=== PATIENT | female | born 1965 | race Caucasian/White ===

== ENCOUNTER 2017-01-17 05:11 | Observation (INO) | payer OTHER ==
[2017-01-17] MEDS ORDERED: ONDANSETRON 4 MG/2 ML VIAL IVP STA ×2 (05:26→08:07)
[2017-01-17] MEDS ORDERED: SODIUM CHLORIDE 0.9% 1,000 ML IV STA ×2 (05:26→08:07)
[2017-01-17] MEDS ORDERED: HYDROmorphone 1 MG/ML 1 ML SYRINGE IVP STA (05:26)
[2017-01-17] MEDS ORDERED: RX INFO: IV CONTRAST WAS GIVEN 1 EACH MISC MISCELLANE PRN (05:26)
--- NOTE | 2017-01-17 05:29 | ED ---
General Adult HPI - General Source: patient, RN notes reviewed Mode of arrival: ambulatory Limitations: no limitations <Federico Maravilla - Last Filed: 01/17/17 05:27> <Kannan Ramirez - Last Filed: 01/17/17 08:09> - General Chief complaint: Abdominal Pain Stated complaint: Abd pain Time Seen by Provider: 01/17/17 05:23 - History of Present Illness Initial comments: Patient is a pleasant 51-year-old female presenting to the emergency department complaining of abdominal discomfort. Onset was 2 days ago. Symptoms have been somewhat waxing and waning. Discomfort is mostly diffuse however may be more so in the suprapubic region. No back pain. Patient has nausea without vomiting. Patient did have some urinary frequency last week however that has improved. No dysuria. No hematuria. No constipation or diarrhea. No fevers. (Federico Maravilla) - Related Data Home Medications Medication Instructions Recorded Confirmed Artificial Tears-Hypromellose 1 drops BOTH EYES BID PRN 04/21/15 08/07/15 [Artificial Tear Drops] Dextroamphetamine/Amphetamine 20 mg PO BID 04/21/15 08/07/15 [Adderall] Docusate [Colace] 100 mg PO DAILY PRN 04/21/15 08/07/15 LORazepam [Ativan] 0.5 mg PO BID PRN 04/21/15 08/07/15 Ranitidine HCl 75 mg PO BID PRN 04/21/15 08/07/15 Previous Rx's Medication Instructions Recorded HYDROcodone/APAP 10-325MG [[place] 1 tab PO Q6H PRN #15 tab 07/24/15 10-325] Ibuprofen [Motrin] 600 mg PO Q8HR PRN #20 tab 07/24/15 Ondansetron Odt [Zofran Odt] 4 mg PO Q8HR PRN #10 tab 07/24/15 Tamsulosin [Flomax] 0.4 mg PO DAILY #7 cap 07/24/15 Erythromycin Ophth Oint [Romycin 1 applic RIGHT EYE QID #3.5 gm 08/07/15 Ophth Oint] Allergies Allergy/AdvReac Type Severity Reaction Status Date / Time acetaminophen [From Lortab] AdvReac Unknown Verified 01/17/17 05:16 hydrocodone bitartrate AdvReac Unknown Verified 01/17/17 05:16 [From Lortab] Review of Systems ROS Other: All systems not noted in ROS Statement are negative. Constitutional: Denies: fever, chills Eyes: Denies: eye pain ENT: Denies: ear pain Respiratory: Denies: cough Cardiovascular: Denies: chest pain Endocrine: Denies: fatigue Gastrointestinal: Reports: abdominal pain, nausea. Denies: vomiting, diarrhea, constipation Genitourinary: Reports: frequency. Denies: urgency, dysuria, hematuria Musculoskeletal: Denies: back pain Skin: Denies: rash Neurological: Denies: weakness <Federico Maravilla - Last Filed: 01/17/17 05:27> ROS Other: All systems not noted in ROS Statement are negative. <Kannan Ramirez - Last Filed: 01/17/17 08:09> ROS Statement: Those systems with pertinent positive or pertinent negative responses have been documented in the HPI. Past Medical History Past Medical History: GERD/Reflux, Renal Disease Additional Past Medical History / Comment(s): 04/21/15 Pt presented to [facility] ER with suprapubic abdominal pain radiating to her back. Pt has hx of kidney stone once before. She stated it feels like that but then it did not radiate. Current pain began 3 weeks ago. Obstetric history: She had her first vaginal delivery when she was 16, then she had a voluntary termination, then she had any other vaginal delivery. History of Any Multi-Drug Resistant Organisms: None Reported Past Surgical History: Tubal Ligation Additional Past Surgical History / Comment(s): novasure uterine ablation, TL using clamps-at age 20 yrs over in [place]. Past Anesthesia/Blood Transfusion Reactions: No Reported Reaction Additional Past Anesthesia/Blood Transfusion Reaction / Comment(s): Pt states she has never recieve blood. Past Psychological History: ADD/ADHD Smoking Status: Current every day smoker Past Alcohol Use History: Rare Past Drug Use History: None Reported - Past Family History Father Family Medical History: Diabetes Mellitus Additional Family Medical History / Comment(s): Father is 75 yrs old. Mother History Unknown: Yes Additional Family Medical History / Comment(s): Pt states mother is on alot of medications but she does not know what health issues she has. Her mother is 75 yrs. old. <Federico Maravilla - Last Filed: 01/17/17 05:27> General Exam Limitations: no limitations General appearance: alert, in no apparent distress Head exam: Present: atraumatic Eye exam: Present: normal appearance, PERRL ENT exam: Present: normal oropharynx Neck exam: Present: normal inspection Respiratory exam: Present: normal lung sounds bilaterally Cardiovascular Exam: Present: regular rate, normal rhythm Expanded Peripheral pulses: 2+: Posterior Tibialis (R), Posterior Tibialis (L) GI/Abdominal exam: Present: soft, tenderness (Mild suprapubic tenderness), normal bowel sounds. Absent: distended, guarding, rebound, rigid, pulsatile mass Extremities exam: Present: normal inspection. Absent: pedal edema, calf tenderness Back exam: Present: normal inspection. Absent: tenderness Neurological exam: Present: alert Psychiatric exam: Present: normal affect, normal mood Skin exam: Present: normal color <Federico Maravilla Last Filed: 01/17/17 05:27> General appearance: alert, in no apparent distress Head exam: Present: atraumatic, normocephalic, normal inspection Eye exam: Present: normal appearance, PERRL, EOMI. Absent: scleral icterus, conjunctival injection, periorbital swelling ENT exam: Present: normal exam, mucous membranes moist Neck exam: Present: normal inspection. Absent: tenderness, meningismus, lymphadenopathy Respiratory exam: Present: normal lung sounds bilaterally. Absent: respiratory distress, wheezes, rales, rhonchi, stridor Cardiovascular Exam: Present: regular rate, normal rhythm, normal heart sounds. Absent: systolic murmur, diastolic murmur, rubs, gallop, clicks GI/Abdominal exam: Present: soft, normal bowel sounds. Absent: distended, tenderness, guarding, rebound, rigid Extremities exam: Present: normal inspection, full ROM, normal capillary refill. Absent: tenderness, pedal edema, joint swelling, calf tenderness Back exam: Present: normal inspection Neurological exam: Present: alert, oriented X3, CN II-XII intact Psychiatric exam: Present: normal affect, normal mood Skin exam: Present: warm, dry, intact, normal color. Absent: rash <Kannan Ramirez - Last Filed: 01/17/17 08:09> Course <Federico Maravilla Last Filed: 01/17/17 05:27> <Kannan Ramirez - Last Filed: 01/17/17 08:09> Vital Signs 01/17/17 01/17/17 05:14 07:17 Temperature 97.8 F 97.1 F L Pulse Rate 101 H 90 Respiratory 18 17 Rate Blood Pressure 134/85 157/74 O2 Sat by Pulse 96 100 Oximetry - Reevaluation(s) Reevaluation #1: 01/17/17 08:09 Patient does feel better but feels symptoms will come back as soon as she leaves (Kannan Ramirez) Medical Decision Making <Federico Maravilla - Last Filed: 01/17/17 05:27> - Lab Data Result diagrams: 01/17/17 05:44 01/17/17 05:44 - Radiology Data Radiology results: report reviewed (Computed tomography scan and pelvis positive for ileus), image reviewed <Kannan Ramirez - Last Filed: 01/17/17 08:09> - Medical Decision Making 51 female any abdominal pain, positive ileus on CAT scan, patient I will tolerate oral fluids, no bowel movement since yesterday. Patient be admitted for conservative therapy, nothing by mouth and symptom control (Kannan Ramirez) - Lab Data Lab Results 01/17/17 01/17/17 01/17/17 Range/Units 05:44 05:44 05:44 WBC 11.0 H (3.8-10.6) k/uL RBC 4.78 (3.80-5.40) m/uL Hgb 15.0 (11.4-16.0) gm/dL Hct 44.6 (34.0-46.0) % MCV 93.5 (80.0-100.0) fL MCH 31.5 (25.0-35.0) pg MCHC 33.7 (31.0-37.0) g/dL RDW 13.8 (11.5-15.5) % Plt Count 402 (150-450) k/uL Neutrophils % 77 % Lymphocytes % 13 % Monocytes % 7 % Eosinophils % 1 % Basophils % 1 % Neutrophils # 8.5 H (1.3-7.7) k/uL Lymphocytes # 1.4 (1.0-4.8) k/uL Monocytes # 0.7 (0-1.0) k/uL Eosinophils # 0.1 (0-0.7) k/uL Basophils # 0.1 (0-0.2) k/uL Sodium 138 (137-145) mmol/L Potassium 3.9 (3.5-5.1) mmol/L Chloride 103 (98-107) mmol/L Carbon Dioxide 26 (22-30) mmol/L Anion Gap 9 mmol/L BUN 14 (7-17) mg/dL Creatinine 0.70 (0.52-1.04) mg/dL Est GFR (MDRD) Af Amer >60 (>60 ml/min/1.73 sqM) Est GFR (MDRD) Non-Af >60 (>60 ml/min/1.73 sqM) Glucose 89 (74-99) mg/dL Calcium 9.5 (8.4-10.2) mg/dL Total Bilirubin 0.5 (0.2-1.3) mg/dL AST 15 (14-36) U/L ALT 29 (9-52) U/L Alkaline Phosphatase 51 (38-126) U/L Total Protein 6.6 (6.3-8.2) g/dL Albumin 4.2 (3.5-5.0) g/dL Amylase 40 (30-110) U/L Lipase 64 (23-300) U/L Urine Color Yellow Urine Appearance Clear (Clear) Urine pH 8.0 (5.0-8.0) Ur Specific [place] 1.010 (1.001-1.035) Urine Protein Negative (Negative) Urine Glucose (UA) Negative (Negative) Urine Ketones Negative (Negative) Urine Blood Negative (Negative) Urine Nitrite Negative (Negative) Urine Bilirubin Negative (Negative) Urine Urobilinogen <2.0 (<2.0) mg/dL Ur Leukocyte Esterase Negative (Negative) Disposition <Federico Maravilla - Last Filed: 01/17/17 05:27> <Kannan Ramirez - Last Filed: 01/17/17 08:09> Clinical Impression: Abdominal pain, Ileus Disposition: ADMITTED IP TO THIS [facility] Condition: Fair Referrals: Nate Buenrostro MD [Primary Care Provider] - 1-2 days
[2017-01-17 05:59] LABS: Appearance,Urine Clear (Clear); Basophils # (A) 0.1 k/uL (0-0.2); Basophils % (A) 1 %; Bilirubin,Urine Negative (Negative); CH 31.9; CHCM 34.3; Eosinophils # (A) 0.1 k/uL (0-0.7); Eosinophils % (A) 1 %; Glucose,Urine (UA) Negative (Negative); HCT 44.6 % (34.0-46.0); HDW 2.16; Ketones,Urine Negative (Negative); Leukocyte Esterase,Urine Negative (Negative); Luc # (Auto) 0.25; Luc % (Auto) 2; Lymphocytes # (A) 1.4 k/uL (1.0-4.8); Lymphocytes % (A) 13 %; MCH 31.5 pg (25.0-35.0); MCHC 33.7 g/dL (31.0-37.0); MCV 93.5 fL (80.0-100.0); Mean Platelet Volume 6.7; Monocytes # (A) 0.7 k/uL (0-1.0); Monocytes % (A) 7 %; Neutrophils # (A) 8.5 k/uL (1.3-7.7); Neutrophils % (A) 77 %; Nitrite,Urine Negative (Negative); Protein,Urine Negative (Negative); RBC 4.78 m/uL (3.80-5.40); RDW 13.8 % (11.5-15.5); UA Billing (MACRO vs. MICRO) CHEM; Urobilinogen,Urine <2.0 mg/dL (<2.0); WBC (Perox) 10.46
[2017-01-17 06:13] LABS: ALT 29 U/L (9-52); AST 15 U/L (14-36); Alkaline Phosphatase 51 U/L (38-126); Amylase 40 U/L (30-110); Anion Gap 9 mmol/L; Blood Urea Nitrogen 14 mg/dL (7-17); Calcium 9.5 mg/dL (8.4-10.2); Carbon Dioxide 26 mmol/L (22-30); Chloride 103 mmol/L (98-107); Glucose 89 mg/dL (74-99); Non-African American GFR(MDRD) >60 (>60 ml/min/1.73 sqM); Potassium 3.9 mmol/L (3.5-5.1); Sodium 138 mmol/L (137-145); Total Bilirubin 0.5 mg/dL (0.2-1.3); Total Protein 6.6 g/dL (6.3-8.2)
--- NOTE | 2017-01-17 07:33 | CT ---
EXAMINATION TYPE: CT abdomen pelvis w con DATE OF EXAM: 01/17/2017 REFERENCE: Previous study dated 07/24/2015. HISTORY: abdominal pain HISTORY: pelvic pain REFERENCE: NONE CT DLP: 743.7 mGy Automated exposure control for dose reduction was used. TECHNIQUE: Helical acquisition through the abdomen and pelvis was obtained following the oral ingesti on of without Oral Contrast and following intravenous administration of 100 mL of Omnipaque 300. The data was reformatted in axial, coronal and sagittal projections. FINDINGS: Visualized portions of the lungs are clear. There is no pleural or pericardial fluid. The heart is not enlarged. Within the abdomen, there is a 4.6 mm low attenuating lesion in the medial segment of the left lobe o f the liver, too small accurately characterize. The liver, spleen and gallbladder are otherwise melchor l. Both adrenal glands are normal. Both kidneys demonstrate function and are morphologically normal. Pancreas is unremarkable. There is no significant retroperitoneal, iliac or inguinal adenopathy. The bladder is unremarkable. Uterus is unremarkable. The endometrial stripe measures 1.3 cm. There has been a previous tubal ligat ion. There is a 1.5 cm right ovarian cyst and a 1.7 cm left ovarian cyst. There are scattered diverticula within the sigmoid colon and elsewhere throughout the left side of th e colon. There is no radiographic evidence of diverticulitis. There are mildly dilated fluid-filled loops of small bowel in the lower abdomen. The more proximal sm all bowel appears normal. There is no free fluid and no free air. No bony destructive lesion is seen. IMPRESSION: 1. MILDLY DILATED AND FLUID-FILLED LOOPS OF DISTAL SMALL BOWEL. LOCALIZED ILEUS VERSUS EARLY PARTIAL OBSTRUCTION WOULD NEED TO BE CONSIDERED. 2. 4.6 MM LESION IN THE LEFT LOBE OF LIVER, TOO SMALL TO CHARACTERIZE ACCURATELY. 3. BILATERAL OVARIAN CYSTS. 4. MINIMAL, NONCOMPLICATED DIVERTICULOSIS OF THE LEFT SIDE OF THE COLON.
[2017-01-17] MEDS ORDERED: SODIUM CHLORIDE 0.9% 500 ML IV STA (08:07)
[2017-01-17] MEDS ORDERED: MORPHINE SULFATE 4 MG/ML SYRINGE IVP STA (08:07)
[2017-01-17] MEDS ORDERED: KETOROLAC 30 MG/ML 1 ML VIAL IVP STA (08:07)
[2017-01-17] MEDS ORDERED: DICYCLOMINE 10 MG/ML 2 ML AMP IM STA (08:07)
[2017-01-17] MEDS ORDERED: FAMOTIDINE 20 MG/2 ML VIAL IV STA (08:07)
[2017-01-17] MEDS ORDERED: ENOXAPARIN 40 MG/0.4 ML SYRINGE SQ SCH (09:00)
[2017-01-17 09:21] VITALS: RESP 16
[2017-01-17] MEDS ORDERED: ONDANSETRON 4 MG/2 ML VIAL IVP PRN (09:47)
[2017-01-17 09:57] VITALS: BMI 31.8
[2017-01-17] MEDS ORDERED: ASPIRIN-ACET-CAFF 250-250-65MG 1 EACH TAB PO PRN (10:40)
[2017-01-17] MEDS ORDERED: LORazepam 0.5 MG TAB PO PRN (10:40)
[2017-01-17] MEDS ORDERED: ESOMEPRAZOLE 20 MG in SODIUM CHLORIDE 0.9% 50 ML IVPB SCH (11:00)
[2017-01-17] MEDS: MORPHINE SULFATE 4 MG/ML SYRINGE IVP PRN ×2 (11:57→15:49)
[2017-01-17 15:02] VITALS: BP 129/74; PULSE 91; TEMP 99.2
[2017-01-17] MEDS ORDERED: ACETAMINOPHEN TAB 325 MG TAB PO PRN (15:32)
--- NOTE | 2017-01-17 16:32 | P.GSCN ---
History of Present Illness Consult date: 01/17/17 Reason for Consult: Abdominal pain History of present illness: The patient presents with a couple of day history of abdominal discomfort. The pain is generalized. It got much worse last night and began to radiate to the pelvis so she came in. She was concerned she could have her recurrent kidney stone. The computed tomography scan did not show that. She has not had any problems with diarrhea or constipation. She tends to have loose stools 1-2 times a day but that's been present for many years. Bowel movement was 2 days ago. No blood in the stools or dark tarry stools. She's had some nausea. No fevers or chills. No one else is been ill. Review of Systems All systems: negative Past Medical History Past Medical History: GERD/Reflux, Renal Disease Additional Past Medical History / Comment(s): kidney stones, sinus infections, arthritis History of Any Multi-Drug Resistant Organisms: None Reported Past Surgical History: Breast Surgery, Tubal Ligation Additional Past Surgical History / Comment(s): TL using clamps-at age 20 yrs over in [place], left breast lumpectomy (biopsy negative), exploratory lap of abdomen. Past Anesthesia/Blood Transfusion Reactions: No Reported Reaction Additional Past Anesthesia/Blood Transfusion Reaction / Comm: Pt states she has never recieve blood. Past Psychological History: ADD/ADHD, Anxiety Smoking Status: Current every day smoker Past Alcohol Use History: Rare Additional Past Alcohol Use History / Comment(s): Pt states she started smoking at age 16 yrs and is 1/2 ppd smoker. Past Drug Use History: None Reported - Past Family History Father Family Medical History: Diabetes Mellitus Additional Family Medical History / Comment(s): Father is 75 yrs old. Mother History Unknown: Yes Family Medical History: Unable to Obtain Additional Family Medical History / Comment(s): Pt states mother is on alot of medications but she does not know what health issues she has. Her mother is 75 yrs. old. Medications and Allergies Home Medications Medication Instructions Recorded Confirmed Type Dextroamphetamine/Amphetamine 20 mg PO BID 04/21/15 01/17/17 History [Adderall] LORazepam [Ativan] 0.5 mg PO BID PRN 04/21/15 01/17/17 History [id number] [id number] 2 tab PO DAILY PRN 01/17/17 01/17/17 History [Excedrin] Fluticasone Nasal [place] [Flonase 2 spr EA NOSTRIL HS 01/17/17 01/17/17 History Nasal [place]] Omeprazole [PriLOSEC] 20 mg PO DAILY 01/17/17 01/17/17 History Allergies Allergy/AdvReac Type Severity Reaction Status Date / Time hydrocodone bitartrate AdvReac Nausea & Verified 01/17/17 08:13 [From Lortab] Vomiting Surgical - Exam Osteopathic Statement: *. No significant issues noted on an osteopathic structural exam other than those noted in the History and Physical/Consult. Vital Signs Temp Pulse Resp BP Pulse Ox 97.8 F 101 H 18 134/85 96 01/17/17 05:14 01/17/17 05:14 01/17/17 05:14 01/17/17 05:14 01/17/17 05:14 - General well developed, well nourished, no distress - Eyes normal ocular movement - ENT normal mucosa, no hearing loss - Neck trachea midline - Respiratory normal respiratory effort, clear to auscultation - Cardiovascular Rhythm: regular Abnormal Heart Sounds: no systolic murmur - Abdomen No tympany to percussion Abdomen: soft, tender (Mild diffuse), bowel sounds, no guarding, no rigid, no rebound, no distended - Psychiatric oriented to time, oriented to person, oriented to place, speech is normal, memory intact Results - Labs 01/17/17 05:44 01/17/17 05:44 Abnormal Lab Results - Last 24 Hours (Table) 01/17/17 Range/Units 05:44 WBC 11.0 H (3.8-10.6) k/uL Neutrophils # 8.5 H (1.3-7.7) k/uL Diabetes panel 01/17/17 Range/Units 05:44 Sodium 138 (137-145) mmol/L Potassium 3.9 (3.5-5.1) mmol/L Chloride 103 (98-107) mmol/L Carbon Dioxide 26 (22-30) mmol/L BUN 14 (7-17) mg/dL Creatinine 0.70 (0.52-1.04) mg/dL Glucose 89 (74-99) mg/dL Calcium 9.5 (8.4-10.2) mg/dL AST 15 (14-36) U/L ALT 29 (9-52) U/L Alkaline Phosphatase 51 (38-126) U/L Total Protein 6.6 (6.3-8.2) g/dL Albumin 4.2 (3.5-5.0) g/dL Calcium panel 01/17/17 Range/Units 05:44 Calcium 9.5 (8.4-10.2) mg/dL Albumin 4.2 (3.5-5.0) g/dL Pituitary panel 01/17/17 Range/Units 05:44 Sodium 138 (137-145) mmol/L Potassium 3.9 (3.5-5.1) mmol/L Chloride 103 (98-107) mmol/L Carbon Dioxide 26 (22-30) mmol/L BUN 14 (7-17) mg/dL Creatinine 0.70 (0.52-1.04) mg/dL Glucose 89 (74-99) mg/dL Calcium 9.5 (8.4-10.2) mg/dL Adrenal panel 01/17/17 Range/Units 05:44 Sodium 138 (137-145) mmol/L Potassium 3.9 (3.5-5.1) mmol/L Chloride 103 (98-107) mmol/L Carbon Dioxide 26 (22-30) mmol/L BUN 14 (7-17) mg/dL Creatinine 0.70 (0.52-1.04) mg/dL Glucose 89 (74-99) mg/dL Calcium 9.5 (8.4-10.2) mg/dL Total Bilirubin 0.5 (0.2-1.3) mg/dL AST 15 (14-36) U/L ALT 29 (9-52) U/L Alkaline Phosphatase 51 (38-126) U/L Total Protein 6.6 (6.3-8.2) g/dL Albumin 4.2 (3.5-5.0) g/dL - Imaging CT scan - abdomen: report reviewed, image reviewed Assessment and Plan (1) History of ovarian cyst Status: Acute (2) History of nephrolithiasis Status: Acute (3) Abdominal pain Status: Acute (4) Ileus Status: Acute Plan: Currently this appears to be a mild ileus. She's tolerating a clear liquid diet. I would treat her supportively. Serial exams. Currently nonsurgical.
[2017-01-17] MEDS ORDERED: FLUTICASONE 50MCG/SPRAY NASAL 16GM EA NOSTRIL SCH (21:00)
[2017-01-18] MEDS ORDERED: FAMOTIDINE 20 MG/2 ML VIAL IV SCH (09:00)
== END 2017-01-17 18:57 | disposition left against medical advice (07) ==
LOC: EC 05:11 → INTOOBSV 08:08 → 4MS4W 08:08
PROVIDERS: ADMIT Family Medicine; ATTEND Family Medicine
DX: K56.7 Ileus, unspecified (principal); F17.200 Nicotine dependence, unspecified, uncomplicated; F90.9 Attention-deficit hyperactivity disorder, unspecified type; N83.201 Unspecified ovarian cyst, right side; N83.202 Unspecified ovarian cyst, left side; K21.9 Gastro-esophageal reflux disease without esophagitis; Z79.899 Other long term (current) drug therapy; Z87.442 Personal history of urinary calculi; Z88.5 Allergy status to narcotic agent
CPT/HCPCS: 96376 ×2; 96372 ×2; 96361; 96374; 96375; 99285; 36415; 80053; 82150; 83690; 85025; 81003; 74177; G0378; J2270; J0500; J2405; J1650; J1885; J1170; Q9967

== ENCOUNTER → 2019-08-05 | Outpatient (CLI) | payer OTHER ==
--- NOTE | 2019-08-05 11:51 | MM ---
Reason for exam: clinical finding. Last mammogram was performed 4 years and 7 months ago. History: Benign MG stereo VAD BX LT of the left breast, January 24, 2015. Benign core biopsy of the left breast, 2009. Physical Findings: Nurse did not find any significant physical abnormalities on exam. MG Diagnostic Mammo w CAD YARA Bilateral CC and MLO view(s) were taken. Prior study comparison: January 13, 2015, left breast MG diagnostic mammo LT w CAD. October 26, 2014, bilateral MG screening mammo w CAD. The breast tissue is heterogeneously dense. This may lower the sensitivity of mammography. Stable left retroareolar asymmetry. Left biopsy marker in a stable mass. These results were verbally communicated with the patient and result sheet given to the patient on 08/05/19. ASSESSMENT: Benign, BI-RAD 2 RECOMMENDATION: Routine screening mammogram of both breasts in 1 year.
== END | disposition home or self-care (01) ==
LOC: RADMAMWWP 10:43
PROVIDERS: ATTEND Pediatrics
DX: N64.4 Mastodynia (principal)
CPT/HCPCS: 77066

== ENCOUNTER 2021-06-01 06:54 | Day surgery (SDC) | payer OTHER ==
[2021-05-31 08:54] VITALS: BMI 31.6
[~2021-06-01 06:54] MED LIST: LACTATED RINGERS 1,000 ML IV SCH
[2021-06-01 07:22] VITALS: RESP 16; TEMP 97
[2021-06-01 07:30] LABS: Glucose,Whole Blood 97 mg/dL (75-99)
[2021-06-01] MEDS ORDERED: PROPOFOL 10 MG/ML 20 ML VIAL IV ONE (07:34)
--- NOTE | 2021-06-01 07:53 | P.PCN ---
Date of Procedure: 06/01/21 Preoperative Diagnosis: Screening for colon cancer Postoperative Diagnosis: Diverticulosis Procedure(s) Performed: Colonoscopy Anesthesia: MAC Surgeon: Irish Soliz Pathology: none sent Condition: stable Disposition: same day Indications for Procedure: 56-year-old female presents for screening colonoscopy. Risks, benefits and alternatives were provided to the patient. She has never had a colonoscopy previously. Operative Findings: Diverticulosis Description of Procedure: The patient was brought into the endoscopy suite and placed in left lateral decubitus position. Adequate sedation was achieved using conscious sedation. A digital rectal exam was performed and internal hemorrhoids were palpated. An endoscope was then placed in the rectum and advanced to the cecum as identified by landmarks including the appendiceal orifice and the ileocecal valve. The prep was good. The colonoscope was slowly withdrawn, examining for any mucosal antibiotics. The cecum, ascending, transverse, descending and sigmoid colon were visualized adequately. There were no large neoplastic lesions noted throughout the colon. There were no obvious polyps noted throughout the colon. Moderate amount of diverticulosis was noted in the descending and sigmoid colon. Retroflexion was performed in the rectum and internal hemorrhoids were visible. Excess air was removed from the colonoscope withdrawn and the procedure terminated. The patient was then transferred to the recovery unit in stable condition. Repeat colonoscopy should be performed in 8 years.
[2021-06-01 08:24] VITALS: BP 137/83; PULSE 90
== END 2021-06-01 08:34 | disposition home or self-care (01) ==
LOC: ORWHC2ENDO 06:54
PROVIDERS: ATTEND Surgery
DX: Z12.11 Encounter for screening for malignant neoplasm of colon (principal); K57.30 Diverticulosis of large intestine without perforation or abscess without bleeding; K64.8 Other hemorrhoids; K21.9 Gastro-esophageal reflux disease without esophagitis; E11.9 Type 2 diabetes mellitus without complications; M19.90 Unspecified osteoarthritis, unspecified site; I10 Essential (primary) hypertension; F17.210 Nicotine dependence, cigarettes, uncomplicated; F41.9 Anxiety disorder, unspecified; F90.9 Attention-deficit hyperactivity disorder, unspecified type; Z98.51 Tubal ligation status; Z83.3 Family history of diabetes mellitus; Z79.84 Long term (current) use of oral hypoglycemic drugs; Z79.1 Long term (current) use of non-steroidal anti-inflammatories (NSAID); Z79.899 Other long term (current) drug therapy; Z88.5 Allergy status to narcotic agent
CPT/HCPCS: J2704; G0121; 45378

== ENCOUNTER → 2022-03-21 | Outpatient (CLI) | payer OTHER ==
[2022-03-21 23:15] LABS: HCT 42.5 % (37.2-46.3); HGB 13.8 g/dL (12.0-15.0); MCH 29.8 pg (27.0-32.0); MCHC 32.5 g/dL (32.0-37.0); MCV 91.8 fL (80.0-97.0); Mean Platelet Volume 9.1 fL (9.5-12.2); NRBC Per 100 WBC 0 /100 WBCS (0.0-0.0); Platelet Count 437 X 10*3/uL (140-440); RBC 4.63 X 10*6/uL (4.10-5.20); RDW 12.5 % (11.5-14.5); WBC 18.11 X 10*3/uL (4.50-10.00)
[2022-03-21 23:52] LABS: ALT 25 U/L (8-44); AST 13 U/L (13-35); African American GFR (CKD) 96.1 (60.0-200.0); Albumin 4.3 g/dL (3.8-4.9); Albumin/Globulin Ratio 1.81 (1.60-3.17); Alkaline Phosphatase 60 U/L (41-126); BUN/Creat Ratio 23.72 Ratio (12.00-20.00); Calcium 9.8 mg/dL (8.7-10.3); Carbon Dioxide 27.1 mmol/L (20.0-27.5); Chloride 102 mmol/L (96-109); Globulin 2.4 g/dL (1.6-3.3); Glucose 110 mg/dL (70-110); Non-African American GFR(CKD) 82.9 (60.0-200.0); Potassium 5.3 mmol/L (3.5-5.5); Sodium 140 mmol/L (135-145); Total Bilirubin <0.15 mg/dL (0.30-1.20); Total Protein 6.7 g/dL (6.2-8.2)
[2022-03-22 00:09] LABS: Basophils # (A) 0.02 X 10*3/uL (0.00-0.10); Basophils % (A) 0.1 %; Eosinophils # (A) 0 X 10*3/uL (0.04-0.35); Eosinophils % (A) 0 %; Lymphocytes # (A) 2.15 X 10*3/uL (0.90-5.00); Lymphocytes % (A) 11.9 %; Monocytes # (A) 1.59 X 10*3/uL (0.20-1.00); Monocytes % (A) 8.8 %; Neutrophils # (A) 14.16 X 10*3/uL (1.80-7.70); Neutrophils % (A) 78.2 %
[2022-03-22 12:42] LABS: Zinc, Serum 71 ug/dL (60-130)
== END | disposition home or self-care (01) ==
LOC: LABWHC1 16:20
PROVIDERS: ATTEND Family Medicine
DX: I10 Essential (primary) hypertension (principal); E55.9 Vitamin D deficiency, unspecified
CPT/HCPCS: 36415; 80053; 82180; 82306; 84630; 85025

== ENCOUNTER 2024-01-26 01:44 | Emergency (ER) | payer OTHER ==
[2024-01-26 01:56] VITALS: RESP 18; TEMP 98.5
--- NOTE | 2024-01-26 03:25 | ED ---
General Adult HPI - General Chief complaint: Headache Stated complaint: Headache Time Seen by Provider: 01/26/24 02:46 Source: patient Mode of arrival: ambulatory - History of Present Illness Initial comments: Thais 58-year-old female presents the ER today for evaluation of headache. Patient reports she has battled sinus headaches and recurrent sinus infections for about 20 years. She states that for the past month she has had a pressure- like headache worse on the right than the left associated with some sinus pressure. Patient has been on antibiotics for the past 10 days with no improvement. Patient states that today her headache is worse never she has developed photophobia and states the headache has become intolerable so she came to the ER for evaluation. Patient states that despite these recurrent infections and frequent use of antibiotics she has never had any imaging of her sinuses. Patient denies any head trauma or injury. - Related Data Home Medications Medication Instructions Recorded Confirmed Dextroamphetamine/Amphetamine 40 mg PO BID 04/21/15 06/01/21 [Adderall] LORazepam [Ativan] 0.5 mg PO DAILY PRN 04/21/15 06/01/21 [id number] 2 tab PO DAILY PRN 01/17/17 06/01/21 [Excedrin] Fluticasone Nasal [place] [Flonase 2 spr EA NOSTRIL DIRECTED PRN 01/17/17 06/01/21 Nasal [place]] Omeprazole [PriLOSEC] 20 mg PO DAILY 01/17/17 06/01/21 Acetaminophen [Tylenol Extra 1,000 mg PO DIRECTED PRN 05/31/21 06/01/21 Strength] Ibuprofen [Motrin] 800 mg PO BID PRN 05/31/21 06/01/21 Losartan [Cozaar] 50 mg PO DAILY 05/31/21 06/01/21 metFORMIN HCL [Glucophage] 500 mg PO DAILY 05/31/21 06/01/21 Previous Rx's Medication Instructions Recorded Azithromycin [Zithromax Z Pack] 1 tab PO DIRECTED #6 tab 01/26/24 Cetirizine HCl [Zyrtec] 10 mg PO DAILY 30 Days #30 tab 01/26/24 Allergies Allergy/AdvReac Type Severity Reaction Status Date / Time hydrocodone bitartrate AdvReac Nausea & Verified 06/01/21 07:17 [From Lortab] Vomiting Review of Systems ROS Statement: Those systems with pertinent positive or pertinent negative responses have been documented in the HPI. ROS Other: All systems not noted in ROS Statement are negative. Past Medical History Past Medical History: GERD/Reflux, Hypertension Additional Past Medical History / Comment(s): hx of kidney stones, sinus headaches. History of Any Multi-Drug Resistant Organisms: None Reported Past Surgical History: Tubal Ligation, Uterine Ablation Additional Past Surgical History / Comment(s): novasure uterine ablation, TL using clamps-at age 20 yrs over in [place]. Laparoscopy Past Anesthesia/Blood Transfusion Reactions: No Reported Reaction Additional Past Anesthesia/Blood Transfusion Reaction / Comment(s): Pt states she has never recieve blood. Past Psychological History: ADD/ADHD Smoking Status: Current every day smoker Past Alcohol Use History: None Reported Past Drug Use History: Marijuana - Past Family History Father Family Medical History: Diabetes Mellitus Additional Family Medical History / Comment(s): Father is 75 yrs old. Mother History Unknown: Yes Family Medical History: Unable to Obtain Additional Family Medical History / Comment(s): Pt states mother is on alot of medications but she does not know what health issues she has. Her mother is 75 yrs. old. Course Vital Signs 01/26/24 01/26/24 01:50 05:55 Temperature 98.5 F Pulse Rate 85 78 Respiratory 18 18 Rate Blood Pressure 191/93 158/72 O2 Sat by Pulse 98 100 Oximetry Medical Decision Making - Medical Decision Making Was pt. sent in by a medical professional or institution (JOSELUIS Millard, SENIOR DESIGNER/ART DIRECTOR, urgent care, hospital, or residential...) When possible be specific @ -No Did you speak to anyone other than the patient for history (EMS, parent, family, police, friend...)? What history was obtained from this source @ -Daughter at bedside Did you review nursing and triage notes (agree or disagree)? Why? @ -I reviewed and agree with nursing and triage notes Were old charts reviewed (outside hosp., previous admission, EMS record, old EKG, old radiological studies, urgent care reports/EKG's, residential records)? Report findings @ -No old charts were reviewed Differential Diagnosis (chest pain, altered mental status, abdominal pain women, abdominal pain men, vaginal bleeding, weakness, fever, dyspnea, syncope, headache, dizziness, GI bleed, back pain, seizure, CVA, palpatations, mental health)? @ -Not applicable EKG interpreted by me (3pts min.). @ -As above X-rays interpreted by me (1pt min.). @ -None done CT interpreted by me (1pt min.). @ -CT brain with no masses or bleed, CT sinuses with no obvious masses radiologist read as possible thickening on the right U/S interpreted by me (1pt. min.). @ -None done What testing was considered but not performed or refused? (CT, X-rays, U/S, labs )? Why? @ -None What meds were considered but not given or refused? Why? @ -None Did you discuss the management of the patient with other professionals (professionals i.e. , PA, SENIOR DESIGNER/ART DIRECTOR, lab, RT, psych nurse, social media community manager, shower screen installer, teacher, uniform patrol police officer, disease case manager)? Give summary @ -No Was smoking cessation discussed for >3mins.? @ -No Was critical care preformed (if so, how long)? @ -No Were there social determinants of health that impacted care today? How? (Homelessness, low income, unemployed, alcoholism, drug addiction, transportation, low edu. Level, literacy, decrease access to med. care, detention, rehab)? @ -No Was there de-escalation of care discussed even if they declined (Discuss DNR or withdrawal of care, Hospice)? DNR status @ -No What co-morbidities impacted this encounter? (DM, HTN, Smoking, COPD, CAD, Cancer, CVA, ARF, Chemo, Hep., AIDS, mental health diagnosis, sleep apnea, morbid obesity)? @ -None Was patient admitted / discharged? Hospital course, mention meds given and route, prescriptions, significant lab abnormalities, going to OR and other pertinent info. @ -Discharge Patient was seen and evaluated history obtained from patient. Patient with a progressively worsening headache for 1 month despite outpatient care. CT of the brain and sinuses was obtained. Patient was treated with Reglan and Benadryl, Toradol was not given until imaging was completed. Upon reevaluation after imaging patient is sleeping comfortably reports significant improvement in her headache. Her blood pressure has improved with resolution of her headache. Discussed with patient that she does have some apparent mucosal thickening in her sinuses could be infectious versus inflammatory recommend continue use of Flonase, starting a daily antihistamine and we will do a Z-Miller as she is already taken an amoxicillin. Was comfortable with this plan and comfortable plan for discharge home. Undiagnosed new problem with uncertain prognosis? @ -No Drug Therapy requiring intensive monitoring for toxicity (Heparin, Nitro, Insulin, Cardizem)? @ -No Were any procedures done? @ -No Diagnosis/symptom? @ -Headache, Sinusitis Acute, or Chronic, or Acute on Chronic? @ -Chronic Uncomplicated (without systemic symptoms) or Complicated (systemic symptoms)? @ -Uncomplicated Side effects of treatment? @ -No Exacerbation, Progression, or Severe Exacerbation? @ -No Poses a threat to life or bodily function? How? (Chest pain, [place], [place], pneumonia, PE, COPD, DKA, ARF, appy, cholecystitis, CVA, Diverticulitis, Homicidal, Suicidal, threat to staff... and all critical care pts) @ -No - Lab Data Result diagrams: 01/26/24 03:30 01/26/24 03:30 Lab Results 01/26/24 01/26/24 Range/Units 03:30 03:30 WBC 7.7 (3.8-10.6) k/uL RBC 4.85 (3.80-5.40) m/uL Hgb 14.4 (11.4-16.0) gm/dL Hct 43.6 (34.0-46.0) % MCV 90.0 (80.0-100.0) fL MCH 29.8 (25.0-35.0) pg MCHC 33.1 (31.0-37.0) g/dL RDW 13.0 (11.5-15.5) % Plt Count 325 (150-450) k/uL MPV 6.7 Neutrophils % 71 % Lymphocytes % 17 % Monocytes % 7 % Eosinophils % 3 % Basophils % 1 % Neutrophils # 5.5 (1.3-7.7) k/uL Lymphocytes # 1.3 (1.0-4.8) k/uL Monocytes # 0.5 (0-1.0) k/uL Eosinophils # 0.2 (0-0.7) k/uL Basophils # 0.1 (0-0.2) k/uL Sodium 137 (137-145) mmol/L Potassium 4.1 (3.5-5.1) mmol/L Chloride 109 H (98-107) mmol/L Carbon Dioxide 23 (22-30) mmol/L Anion Gap 5 mmol/L BUN 22 H (7-17) mg/dL Creatinine 0.72 (0.52-1.04) mg/dL Est GFR (CKD-EPI)AfAm >90 (>60 ml/min/1.73 sqM) Est GFR (CKD-EPI)NonAf >90 (>60 ml/min/1.73 sqM) Glucose 117 H (74-99) mg/dL Calcium 9.4 (8.4-10.2) mg/dL Total Bilirubin 0.5 (0.2-1.3) mg/dL AST 23 (14-36) U/L ALT 21 (4-34) U/L Alkaline Phosphatase 69 (38-126) U/L Total Protein 6.5 (6.3-8.2) g/dL Albumin 4.1 (3.5-5.0) g/dL Disposition Clinical Impression: Headache Disposition: HOME SELF-CARE Condition: Stable Instructions (If sedation given, give patient instructions): Acute Headache (ED) Prescriptions: Azithromycin [Zithromax Z Pack] 1 tab PO DIRECTED #6 tab Cetirizine HCl [Zyrtec] 10 mg PO DAILY 30 Days #30 tab Is patient prescribed a controlled substance at d/c from ED?: No Referrals: None,Stated [Primary Care Provider] - 1-2 days
[2024-01-26] MEDS: SODIUM CHLORIDE 0.9% 1,000 ML IV STA (03:36)
[2024-01-26 03:53] LABS: Basophils # (A) 0.1 k/uL (0-0.2); Basophils % (A) 1 %; Eosinophils # (A) 0.2 k/uL (0-0.7); Eosinophils % (A) 3 %; HCT 43.6 % (34.0-46.0); HGB 14.4 gm/dL (11.4-16.0); Lymphocytes # (A) 1.3 k/uL (1.0-4.8); Lymphocytes % (A) 17 %; MCH 29.8 pg (25.0-35.0); MCHC 33.1 g/dL (31.0-37.0); Mean Platelet Volume 6.7; Monocytes # (A) 0.5 k/uL (0-1.0); Monocytes % (A) 7 %; Neutrophils # (A) 5.5 k/uL (1.3-7.7); Neutrophils % (A) 71 %; Platelet Count 325 k/uL (150-450); RBC 4.85 m/uL (3.80-5.40); WBC 7.7 k/uL (3.8-10.6)
[2024-01-26 04:11] LABS: ALT 21 U/L (4-34); AST 23 U/L (14-36); African American GFR (CKD) >90 (>60 ml/min/1.73 sqM); Albumin 4.1 g/dL (3.5-5.0); Alkaline Phosphatase 69 U/L (38-126); Anion Gap 5 mmol/L; Blood Urea Nitrogen 22 mg/dL (7-17); Calcium 9.4 mg/dL (8.4-10.2); Carbon Dioxide 23 mmol/L (22-30); Chloride 109 mmol/L (98-107); Glucose 117 mg/dL (74-99); Non-African American GFR(CKD) >90 (>60 ml/min/1.73 sqM); Potassium 4.1 mmol/L (3.5-5.1); Sodium 137 mmol/L (137-145); Total Bilirubin 0.5 mg/dL (0.2-1.3); Total Protein 6.5 g/dL (6.3-8.2)
[2024-01-26] MEDS: METOCLOPRAMIDE 5 MG/ML 2 ML VIAL IVP STA (04:21)
[2024-01-26] MEDS: diphenhydrAMINE 50 MG/ML 1 ML VIAL IVP STA (04:24)
--- NOTE | 2024-01-26 04:55 | CT ---
EXAM: CT Head Without Intravenous Contrast CLINICAL HISTORY: ITS.REASON CT Reason: Headache TECHNIQUE: Axial computed tomography images of the head/brain without intravenous contrast. CTDI is 49.1 mGy and DLP is 1109.5 mGy-cm. This CT exam was performed using one or more of the following dose reduction techniques: automated exposure control, adjustment of the mA and/or kV according to patient size, and/or use of iterative reconstruction technique. COMPARISON: No relevant prior studies available. FINDINGS: Brain: Unremarkable. No hemorrhage. No significant white matter disease. No edema. Ventricles: Unremarkable. No ventriculomegaly. Bones/joints: Unremarkable. No acute fracture. Soft tissues: Unremarkable. Sinuses: Unremarkable as visualized. No acute sinusitis. Mastoid air cells: Unremarkable as visualized. No mastoid effusion. IMPRESSION: No evidence of acute intracranial pathology.
--- NOTE | 2024-01-26 05:02 | CT ---
EXAM: CT Maxillofacial Sinuses With Intravenous Contrast CLINICAL HISTORY: ITS.REASON CT Reason: pain x1mo TECHNIQUE: Computed tomography images of the maxillofacial sinuses with intravenous contrast. CTDI is 16.9 mGy and DLP is 400 mGy-cm. This CT exam was performed using one or more of the following dose reduction techniques: automated exposure control, adjustment of the mA and/or kV according to patient size, and/or use of iterative reconstruction technique. COMPARISON: No relevant prior studies available. FINDINGS: Maxillary sinuses: There is mild mucosal thickening about the right ostiomeatal unit. No air-fluid levels. Sphenoid sinuses: Unremarkable. No air-fluid levels. Frontal sinuses: Unremarkable. No air-fluid levels. Ethmoid air cells: Unremarkable. No air-fluid levels. Nasal cavity/septum: No acute findings. Bones/joints: No acute fracture. Periapical lucencies about tooth #3 concerning for periapical abscesses. Soft tissues: Unremarkable. IMPRESSION: Mild mucosal thickening at the right ostiomeatal unit. Periapical lucencies about tooth #3 concerning for periapical abscess. Recommend dental consult.
[2024-01-26 05:56] VITALS: BP 158/72; PULSE 78
== END 2024-01-26 06:34 | disposition home or self-care (01) ==
LOC: EC 01:44
CPT/HCPCS: 36415; 70450; 70487; 80053; 85025; 96361; 96374; 96375; 99284

== ENCOUNTER 2024-05-08 07:25 | Emergency (ER) | payer OTHER ==
[2024-05-08 07:33] VITALS: TEMP 97.3
--- NOTE | 2024-05-08 07:57 | ED ---
General Adult HPI - General Chief complaint: Chest Pain Stated complaint: chest pain Time Seen by Provider: 05/08/24 07:30 Source: patient, RN notes reviewed, old records reviewed Mode of arrival: ambulatory Limitations: no limitations - History of Present Illness Initial comments: This is a 59-year-old female who presents to the emergency department stating that she is been under quite a bit of stress today and she was having some chest tightness so she came to the emergency department. Patient states both of her parents are ill her daughter years ago from drugs and she does not get to see the grandkids. Patient states her son recently got caught with drugs and because it was in the house that she is also and she was charged and just got out of skilled nursing after 4 days of being in skilled nursing. Patient states she was lying in bed and was having a hard time sleeping and she was having chest tightness that has been ongoing for 4 days and it has been constant. Patient states it was the 4 days she was in skilled nursing and since she got out last night she decided to come to the hospital to be checked out. Patient thinks that is probably related to her anx iety. Patient denies any shortness of breath. Patient denies any radiation of the tightness patient denies any sweating patient denies any nausea vomiting. Patient states she has Ativan but she did not take it and she has the Ativan for anxiety - Related Data Home Medications Medication Instructions Recorded Confirmed Dextroamphetamine/Amphetamine 40 mg PO BID 04/21/15 06/01/21 [Adderall] LORazepam [Ativan] 0.5 mg PO DAILY PRN 04/21/15 06/01/21 [id number] 2 tab PO DAILY PRN 01/17/17 06/01/21 [Excedrin] Fluticasone Nasal [place] [Flonase 2 spr EA NOSTRIL DIRECTED PRN 01/17/17 06/01/21 Nasal [place]] Omeprazole [PriLOSEC] 20 mg PO DAILY 01/17/17 06/01/21 Acetaminophen [Tylenol Extra 1,000 mg PO DIRECTED PRN 05/31/21 06/01/21 Strength] Ibuprofen [Motrin] 800 mg PO BID PRN 05/31/21 06/01/21 Losartan [Cozaar] 50 mg PO DAILY 05/31/21 06/01/21 metFORMIN HCL [Glucophage] 500 mg PO DAILY 05/31/21 06/01/21 Previous Rx's Medication Instructions Recorded Azithromycin [Zithromax Z Pack] 1 tab PO DIRECTED #6 tab 01/26/24 Cetirizine HCl [Zyrtec] 10 mg PO DAILY 30 Days #30 tab 01/26/24 Allergies Allergy/AdvReac Type Severity Reaction Status Date / Time hydrocodone bitartrate AdvReac Nausea & Verified 06/01/21 07:17 [From Lortab] Vomiting Review of Systems ROS Statement: Those systems with pertinent positive or pertinent negative responses have been documented in the HPI. ROS Other: All systems not noted in ROS Statement are negative. Past Medical History Past Medical History: GERD/Reflux, Hypertension Additional Past Medical History / Comment(s): hx of kidney stones, sinus headach es. History of Any Multi-Drug Resistant Organisms: None Reported Past Surgical History: Tubal Ligation, Uterine Ablation Additional Past Surgical History / Comment(s): novasure uterine ablation, TL using clamps-at age 20 yrs over in [place]. Laparoscopy Past Anesthesia/Blood Transfusion Reactions: No Reported Reaction Additional Past Anesthesia/Blood Transfusion Reaction / Comment(s): Pt states she has never recieve blood. Past Psychological History: ADD/ADHD Smoking Status: Current every day smoker Past Alcohol Use History: None Reported Past Drug Use History: Marijuana - Past Family History Father Family Medical History: Diabetes Mellitus Additional Family Medical History / Comment(s): Father is 75 yrs old. Mother History Unknown: Yes Family Medical History: Unable to Obtain Additional Family Medical History / Comment(s): Pt states mother is on alot of medications but she does not know what health issues she has. Her mother is 75 yrs. old. General Exam - General Exam Comments Initial Comments: GENERAL: Patient is well-developed and well-nourished. Patient is nontoxic and well- hydrated and is in anxiety distress. ENT: Neck is soft and supple. No significant lymphadenopathy is noted. Oropharynx is clear. Moist mucous membranes. Neck has full range of motion without eliciting any pain. EYES: The sclera were anicteric and conjunctiva were pink and moist. Extraocular movements were intact and pupils were equal round and reactive to light. Eyelids were unremarkable. PULMONARY: Unlabored respirations. Good breath sounds bilaterally. No audible rales rhonchi or wheezing was noted. CARDIOVASCULAR: There is a regular rate and rhythm without any murmurs gallops or rubs. ABDOMEN: Soft and nontender with normal bowel sounds. SKIN: Skin is clear with no lesions or rashes and otherwise unremarkable. NEUROLOGIC: Patient is alert and oriented x3. Cranial nerves II through XII are grossly intact. Motor and sensory are also intact. Normal speech, volume and content. Symmetrical smile. MUSCULOSKELETAL: Normal extremities with adequate strength and full range of motion. LYMPHATICS: No significant lymphadenopathy is noted PSYCHIATRIC: Normal psychiatric evaluation. Limitations: no limitations Course Vital Signs 05/08/24 07:29 Temperature 97.3 F L Pulse Rate 88 Respiratory 18 Rate Blood Pressure 167/84 O2 Sat by Pulse 100 Oximetry Medical Decision Making - Medical Decision Making EKG is interpreted by myself. EKG shows sinus rhythm at 84 bpm MN 186 QRS is 93 QT interval 371 QTc is 412. Patient's EKG shows no ST segment elevation or depression. Was pt. sent in by a medical professional or institution (, PA, ENVELOPE SEALER, urgent care, hospital, or residential...) When possible be specific @ -No Did you speak to anyone other than the patient for history (EMS, parent, family, police, friend...)? What history was obtained from this source @ -No Did you review nursing and triage notes (agree or disagree)? Why? @ -I reviewed and agree with nursing and triage notes Were old charts reviewed (outside hosp., previous admission, EMS record, old EK G, old radiological studies, urgent care reports/EKG's, residential records)? Report findings @ -No old charts were reviewed Differential Diagnosis? @ -Differential Chest Pain: Stable Angina, Unstable Angina, STEMI, NSTEMI Aortic Dissection, Pneumothorax, Musculoskeletal, Esophageal Spasm GERD, Cholecystitis, Pancreatitis, Zoster, this is not meant to be an all-inclusive list. EKG interpreted by me (3pts min.). @ -As above X-rays interpreted by me (1pt min.). @ -Chest x-ray shows no acute abnormality CT interpreted by me (1pt min.). @ -None done U/S interpreted by me (1pt. min.). @ -None done What testing was considered but not performed or refused? (CT, X-rays, U/S, labs)? Why? @ -None What meds were considered but not given or refused? Why? @ -None Did you discuss the management of the patient with other professionals (professionals i.e. , PA, ENVELOPE SEALER, lab, RT, psych nurse, social service technician, audiology technician, teacher, licensed loan officer, case management rn)? Give summary @ -No Was smoking cessation discussed for >3mins.? @ -No Was critical care preformed (if so, how long)? @ -No Were there social determinants of health that impacted care today? How? (Homelessness, low income, unemployed, alcoholism, drug addiction, transportation, low edu. Level, literacy, decrease access to med. care, skilled nursing, rehab)? @ -No Was there de-escalation of care discussed even if they declined (Discuss DNR or withdrawal of care, Hospice)? DNR status @ -No What co-morbidities impacted this encounter? (DM, HTN, Smoking, COPD, CAD, Cancer, CVA, ARF, Chemo, Hep., AIDS, mental health diagnosis, sleep apnea, morbid obesity)? @ -None Was patient admitted / discharged? Hospital course, mention meds given and route, prescriptions, significant lab abnormalities, going to OR and other pertinent info. @ -Patient was given Ativan and was feeling considerably better. Patient's chest tightness dissipated she stated as soon as she got the Ativan. Patient denies any other symptoms at this time. Patient denied any shortness of breath to me. Patient did not describe the discomfort as chest pain she stated was chest tightness Undiagnosed new problem with uncertain prognosis? @ -No Drug Therapy requiring intensive monitoring for toxicity (Heparin, Nitro, Insulin, Cardizem)? @ -No Were any procedures done? @ -No Diagnosis/symptom? @ -Default Acute, or Chronic, or Acute on Chronic? @ -Acute Uncomplicated (without systemic symptoms) or Complicated (systemic symptoms)? @ -Complicate Side effects of treatment? @ -No Exacerbation, Progression, or Severe Exacerbation? @ -No Poses a threat to life or bodily function? How? (Chest pain, [place], [place], pneumonia, PE, COPD, DKA, ARF, appy, cholecystitis, CVA, Diverticulitis, Homicidal, Suicidal, threat to staff... and all critical care pts) @ -No - Lab Data Result diagrams: 05/08/24 07:53 05/08/24 07:53 Lab Results 05/08/24 05/08/24 05/08/24 Range/Units 07:53 07:53 07:53 WBC 11.8 H (3.8-10.6) k/uL RBC 4.88 (3.80-5.40) m/uL Hgb 14.8 (11.4-16.0) gm/dL Hct 44.8 (34.0-46.0) % MCV 91.8 (80.0-100.0) fL MCH 30.4 (25.0-35.0) pg MCHC 33.2 (31.0-37.0) g/dL RDW 13.1 (11.5-15.5) % Plt Count 411 (150-450) k/uL MPV 7.0 Neutrophils % 70 % Lymphocytes % 18 % Monocytes % 7 % Eosinophils % 1 % Basophils % 0 % Neutrophils # 8.3 H (1.3-7.7) k/uL Lymphocytes # 2.2 (1.0-4.8) k/uL Monocytes # 0.8 (0-1.0) k/uL Eosinophils # 0.1 (0-0.7) k/uL Basophils # 0.1 (0-0.2) k/uL PT 9.6 L (10.0-12.5) sec INR 0.8 (<1.2) APTT 24.7 (22.0-30.0) sec Sodium 141 (137-145) mmol/L Potassium 3.6 (3.5-5.1) mmol/L Chloride 107 (98-107) mmol/L Carbon Dioxide 26 (22-30) mmol/L Anion Gap 8 mmol/L BUN 28 H (7-17) mg/dL Creatinine 0.80 (0.52-1.04) mg/dL Est GFR (CKD-EPI)AfAm >90 (>60 ml/min/1.73 sqM) Est GFR (CKD-EPI)NonAf 82 (>60 ml/min/1.73 sqM) Glucose 96 (74-99) mg/dL Calcium 9.5 (8.4-10.2) mg/dL Magnesium 2.0 (1.6-2.3) mg/dL Total Bilirubin 0.3 (0.2-1.3) mg/dL AST 22 (14-36) U/L ALT 19 (4-34) U/L Alkaline Phosphatase 90 (38-126) U/L Troponin I (0.000-0.034) ng/mL Total Protein 7.2 (6.3-8.2) g/dL Albumin 4.5 (3.5-5.0) g/dL Urine Color Urine Appearance (Clear) Urine pH (5.0-8.0) Ur Specific [place] (1.001-1.035) Urine Protein (Negative) Urine Glucose (UA) (Negative) Urine Ketones (Negative) Urine Blood (Negative) Urine Nitrite (Negative) Urine Bilirubin (Negative) Urine Urobilinogen (<2.0) mg/dL Ur Leukocyte Esterase (Negative) Urine RBC (0-5) /hpf Urine WBC (0-5) /hpf Ur Squamous Epith Cells (0-4) /hpf Amorphous Sediment (None) /hpf Urine Bacteria (None) /hpf Urine Mucus (None) /hpf 05/08/24 05/08/24 Range/Units 07:53 08:40 WBC (3.8-10.6) k/uL RBC (3.80-5.40) m/uL Hgb (11.4-16.0) gm/dL Hct (34.0-46.0) % MCV (80.0-100.0) fL MCH (25.0-35.0) pg MCHC (31.0-37.0) g/dL RDW (11.5-15.5) % Plt Count (150-450) k/uL MPV Neutrophils % % Lymphocytes % % Monocytes % % Eosinophils % % Basophils % % Neutrophils # (1.3-7.7) k/uL Lymphocytes # (1.0-4.8) k/uL Monocytes # (0-1.0) k/uL Eosinophils # (0-0.7) k/uL Basophils # (0-0.2) k/uL PT (10.0-12.5) sec INR (<1.2) APTT (22.0-30.0) sec Sodium (137-145) mmol/L Potassium (3.5-5.1) mmol/L Chloride (98-107) mmol/L Carbon Dioxide (22-30) mmol/L Anion Gap mmol/L BUN (7-17) mg/dL Creatinine (0.52-1.04) mg/dL Est GFR (CKD-EPI)AfAm (>60 ml/min/1.73 sqM) Est GFR (CKD-EPI)NonAf (>60 ml/min/1.73 sqM) Glucose (74-99) mg/dL Calcium (8.4-10.2) mg/dL Magnesium (1.6-2.3) mg/dL Total Bilirubin (0.2-1.3) mg/dL AST (14-36) U/L ALT (4-34) U/L Alkaline Phosphatase (38-126) U/L Troponin I <0.012 (0.000-0.034) ng/mL Total Protein (6.3-8.2) g/dL Albumin (3.5-5.0) g/dL Urine Color Light Yellow Urine Appearance Cloudy H (Clear) Urine pH 6.0 (5.0-8.0) Ur Specific [place] 1.026 (1.001-1.035) Urine Protein Negative (Negative) Urine Glucose (UA) Negative (Negative) Urine Ketones Negative (Negative) Urine Blood Negative (Negative) Urine Nitrite Negative (Negative) Urine Bilirubin Negative (Negative) Urine Urobilinogen <2.0 (<2.0) mg/dL Ur Leukocyte Esterase Negative (Negative) Urine RBC 2 (0-5) /hpf Urine WBC 2 (0-5) /hpf Ur Squamous Epith Cells 4 (0-4) /hpf Amorphous Sediment Occasional H (None) /hpf Urine Bacteria Rare H (None) /hpf Urine Mucus Rare H (None) /hpf Disposition Clinical Impression: Anxiety Disposition: HOME SELF-CARE Condition: Good Instructions (If sedation given, give patient instructions): Anxiety (ED) Is patient prescribed a controlled substance at d/c from ED?: No Referrals: Nonstaff,Physician [Primary Care Provider] - 1-2 days Time of Disposition: 09:28
[2024-05-08] MEDS: NITROGLYCERIN OINT 1 INCH/GM PACKET TOPICAL STA (07:59)
[2024-05-08] MEDS: LORazepam 2 MG/ML INJ IV STA (07:59)
[2024-05-08] MEDS: ASPIRIN 81 MG PO STA (07:59)
[2024-05-08 08:12] LABS: Basophils # (A) 0.1 k/uL (0-0.2); Basophils % (A) 0 %; Eosinophils # (A) 0.1 k/uL (0-0.7); Eosinophils % (A) 1 %; HCT 44.8 % (34.0-46.0); HGB 14.8 gm/dL (11.4-16.0); Lymphocytes # (A) 2.2 k/uL (1.0-4.8); Lymphocytes % (A) 18 %; MCH 30.4 pg (25.0-35.0); MCHC 33.2 g/dL (31.0-37.0); MCV 91.8 fL (80.0-100.0); Monocytes # (A) 0.8 k/uL (0-1.0); Monocytes % (A) 7 %; Neutrophils # (A) 8.3 k/uL (1.3-7.7); Neutrophils % (A) 70 %; Platelet Count 411 k/uL (150-450); RBC 4.88 m/uL (3.80-5.40); RDW 13.1 % (11.5-15.5); WBC 11.8 k/uL (3.8-10.6)
--- NOTE | 2024-05-08 08:16 | XR ---
EXAMINATION TYPE: XR chest 2V DATE OF EXAM: 05/08/2024 8:10 AM COMPARISON: None. CLINICAL INDICATION: Female, 59 years old with history of Chest Pain, TECHNIQUE: XR chest 2V view(s) obtained. FINDINGS: The heart size is normal. The pulmonary vasculature is normal. The lungs are clear. IMPRESSION: 1. No acute pulmonary process. [facility], , 05/08/2024 8:14 AM
[2024-05-08 08:23] LABS: ALT 19 U/L (4-34); AST 22 U/L (14-36); African American GFR (CKD) >90 (>60 ml/min/1.73 sqM); Albumin 4.5 g/dL (3.5-5.0); Alkaline Phosphatase 90 U/L (38-126); Anion Gap 8 mmol/L; Blood Urea Nitrogen 28 mg/dL (7-17); Calcium 9.5 mg/dL (8.4-10.2); Carbon Dioxide 26 mmol/L (22-30); Chloride 107 mmol/L (98-107); Glucose 96 mg/dL (74-99); Non-African American GFR(CKD) 82 (>60 ml/min/1.73 sqM); Potassium 3.6 mmol/L (3.5-5.1); Sodium 141 mmol/L (137-145); Total Bilirubin 0.3 mg/dL (0.2-1.3); Total Protein 7.2 g/dL (6.3-8.2)
[2024-05-08 08:28] LABS: INR 0.8 (<1.2); Partial Thromboplastin Time 24.7 sec (22.0-30.0); Prothrombin Time 9.6 sec (10.0-12.5)
[2024-05-08 09:02] LABS: Amorphous Sediment,Urine Occasional /hpf; Appearance,Urine Cloudy (Clear); Bacteria,Urine Rare /hpf; Bilirubin,Urine Negative (Negative); Blood,Urine Negative (Negative); Color,Urine Light Yellow; Glucose,Urine (UA) Negative (Negative); Ketones,Urine Negative (Negative); Leukocyte Esterase,Urine Negative (Negative); Mucus,Urine Rare /hpf; Nitrite,Urine Negative (Negative); Protein,Urine Negative (Negative); RBC,Urine 2 /hpf (0-5); Specific Gravity,Urine 1.026 (1.001-1.035); Squamous Epithelial Cell,Urine 4 /hpf (0-4); Urobilinogen,Urine <2.0 mg/dL (<2.0); WBC,Urine 2 /hpf (0-5)
[2024-05-08 09:48] VITALS: BP 97/73; PULSE 73; RESP 17
== END 2024-05-08 09:48 | disposition home or self-care (01) ==
LOC: EC 07:25
DX: F41.9 Anxiety disorder, unspecified (principal); F17.200 Nicotine dependence, unspecified, uncomplicated; Z88.8 Allergy status to other drugs, medicaments and biological substances
CPT/HCPCS: 36415; 93005; 80053; 83735; 84484; 85025; 85610; 85730; 81001; 71046; 99285; 96374; J2060

== ENCOUNTER 2024-07-01 21:52 | Emergency (ER) | payer OTHER ==
[2024-07-01 21:59] VITALS: RESP 18
[2024-07-01] MEDS: methylPREDNISolone SOD SUCCI 125 MG/2 ML VIAL IM ONE (22:36)
[2024-07-01] MEDS: IBUPROFEN 800 MG TAB PO STA (22:37)
--- NOTE | 2024-07-01 22:41 | XR ---
EXAMINATION TYPE: XR chest 2V DATE OF EXAM: 07/01/2024 10:32 PM COMPARISON: Chest x-ray May 08, 2024 CLINICAL INDICATION: Female, 59 years old with history of congestion, uri, TECHNIQUE: Frontal and lateral views of the chest are obtained. FINDINGS: There is no focal air space opacity, pleural effusion, or pneumothorax seen. The cardiac silhouette size is stable and upper limits of normal. The osseous structures are intact. IMPRESSION: No acute cardiopulmonary process. [facility], , 07/01/2024 10:38 PM
--- NOTE | 2024-07-01 23:38 | ED ---
General Adult HPI - General Chief complaint: Upper Respiratory Infection Stated complaint: Sinus Infection Time Seen by Provider: 07/01/24 22:10 Source: patient, RN notes reviewed, old records reviewed Mode of arrival: ambulatory - History of Present Illness Initial comments: Is a 59-year-old female who presents emergency department with a sinus headache and sinus pressure. States this is typical for her sinus infections which she has a history of. Is asking for steroids. Denies any significant cough. Endorses some facial congestion. Symptoms started today. No fevers or chills. Presents for further evaluation. Denies chest pain, sick contacts, abdominal pain, nausea, vomiting. Past medical history includes hypertension, sinus headaches, sinus infections. - Related Data Home Medications Medication Instructions Recorded Confirmed Dextroamphetamine/Amphetamine 40 mg PO BID 04/21/15 06/01/21 [Adderall] LORazepam [Ativan] 0.5 mg PO DAILY PRN 04/21/15 06/01/21 [id number] 2 tab PO DAILY PRN 01/17/17 06/01/21 [Excedrin] Fluticasone Nasal [place] [Flonase 2 spr EA NOSTRIL DIRECTED PRN 01/17/17 06/01/21 Nasal [place]] Omeprazole [PriLOSEC] 20 mg PO DAILY 01/17/17 06/01/21 Acetaminophen [Tylenol Extra 1,000 mg PO DIRECTED PRN 05/31/21 06/01/21 Strength] Ibuprofen [Motrin] 800 mg PO BID PRN 05/31/21 06/01/21 Losartan [Cozaar] 50 mg PO DAILY 05/31/21 06/01/21 metFORMIN HCL [Glucophage] 500 mg PO DAILY 05/31/21 06/01/21 Previous Rx's Medication Instructions Recorded Azithromycin [Zithromax Z Pack] 1 tab PO DIRECTED #6 tab 01/26/24 Cetirizine HCl [Zyrtec] 10 mg PO DAILY 30 Days #30 tab 01/26/24 Azithromycin [Zithromax] 250 mg PO DAILY 5 Days #6 tab 07/01/24 methylPREDNISolone [Medrol Dose 0 mg PO DIRECTED #1 packet 07/01/24 Pack] Allergies Allergy/AdvReac Type Severity Reaction Status Date / Time hydrocodone bitartrate AdvReac Nausea & Verified 07/01/24 21:54 [From Lortab] Vomiting Review of Systems ROS Statement: Those systems with pertinent positive or pertinent negative responses have been documented in the HPI. Review of Systems: CONST: Denies fever EYES: Denies blurry vision ENT: Endorses nasal congestion, sinus headache, sinus pressure C/V: Denies Chest pain RESP: Denies shortness of breath GI: Denies abdominal pain : Denies dysuria SKIN: Denies rash. MSK: Denies joint pain. NEURO: Denies headache ROS Other: All systems not noted in ROS Statement are negative. Past Medical History Past Medical History: GERD/Reflux, Hypertension Additional Past Medical History / Comment(s): hx of kidney stones, sinus headaches. History of Any Multi-Drug Resistant Organisms: None Reported Past Surgical History: Tubal Ligation, Uterine Ablation Additional Past Surgical History / Comment(s): novasure uterine ablation, TL using clamps-at age 20 yrs over in [place]. Laparoscopy Past Anesthesia/Blood Transfusion Reactions: No Reported Reaction Additional Past Anesthesia/Blood Transfusion Reaction / Comment(s): Pt states she has never recieve blood. Past Psychological History: ADD/ADHD, Anxiety Smoking Status: Current every day smoker Past Alcohol Use History: None Reported Past Drug Use History: Marijuana - Past Family History Father Family Medical History: Diabetes Mellitus Additional Family Medical History / Comment(s): Father is 75 yrs old. Mother History Unknown: Yes Family Medical History: Unable to Obtain Additional Family Medical History / Comment(s): Pt states mother is on alot of medications but she does not know what health issues she has. Her mother is 75 yrs. old. General Exam - General Exam Comments Initial Comments: General: Appears in no acute distress. HEAD: Normal with no signs of head trauma. EYES: EOMI. ENT: Hearing grossly intact. Maxillary and frontal sinus tenderness to palpation. RESPIRATORY: No respiratory distress. Clear breath sounds bilaterally. No hypoxia. No increased work of breathing. C/V: Regular rate and rhythm. ABD: Abdomen is nondistended. EXT: No obvious deformity. SKIN: No rashes or lesions observed on exposed skin. NEURO: Alert and oriented. Course Vital Signs 07/01/24 07/01/24 21:55 23:57 Temperature 97.5 F L 98.3 F Pulse Rate 103 H 16 L Respiratory 18 18 Rate Blood Pressure 137/80 133/78 O2 Sat by Pulse 97 97 Oximetry Medical Decision Making - Medical Decision Making Was pt. sent in by a medical professional or institution ([facility] Millard, [facility], urgent care, hospital, or skilled nursing...) When possible be specific @ -No Did you speak to anyone other than the patient for history (EMS, parent, family, police, friend...)? What history was obtained from this source @ -No Did you review nursing and triage notes (agree or disagree)? Why? @ -I reviewed and agree with nursing and triage notes Were old charts reviewed (outside hosp., previous admission, EMS record, old EKG, old radiological studies, urgent care reports/EKG's, skilled nursing records)? Report findings @ -No old charts were reviewed Differential Diagnosis (chest pain, altered mental status, abdominal pain women, abdominal pain men, vaginal bleeding, weakness, fever, dyspnea, syncope, headache, dizziness, GI bleed, back pain, seizure, CVA, palpatations, mental health, musculoskeletal)? @ -COVID, flu, RSV, pneumonia, sinusitis. This list is not all inclusive. EKG interpreted by me (3pts min.). @ -None done X-rays interpreted by me (1pt min.). @ -Chest x-ray reveals no obvious acute cardiopulmonary process CT interpreted by me (1pt min.). @ -None done U/S interpreted by me (1pt. min.). @ -None done What testing was considered but not performed or refused? (CT, X-rays, U/S, labs)? Why? @ -None What meds were considered but not given or refused? Why? @ -None Did you discuss the management of the patient with other professionals (professionals i.e. JOSELUIS Millard, [facility] [employer]TER, lab, RT, psych nurse, school social worker, tray delivery aide, teacher, unemployment insurance hearing officer, child welfare caseworker)? Give summary @ -No Was smoking cessation discussed for >3mins.? @ -No Was critical care preformed (if so, how long)? @ -No Were there social determinants of health that impacted care today? How? (Homelessness, low income, unemployed, alcoholism, drug addiction, transportation, low edu. Level, literacy, decrease access to med. care, retirement, rehab)? @ -No Was there de-escalation of care discussed even if they declined (Discuss DNR or withdrawal of care, Hospice)? DNR status @ -No What co-morbidities impacted this encounter? (DM, HTN, Smoking, COPD, CAD, Cancer, CVA, ARF, Chemo, Hep., AIDS, mental health diagnosis, sleep apnea, morbid obesity)? @ -None Was patient admitted / discharged? Hospital course, mention meds given and route, prescriptions, significant lab abnormalities, going to OR and other pertinent info. @ -Based on the patient's presentation and physical exam, and likely has sinusitis but we will obtain viral swabs as well as chest x-ray. She was in agreement this plan. Vital signs within acceptable limits. She will be symptomatically treat with a IM injection of Solu-Medrol as well as Motrin. Vital signs within acceptable limits. Chest x-ray unremarkable. Viral swabs negative. On reevaluation I updated the patient. She will be started on Solu- Medrol Dosepak for sinusitis and recommend follow-up with her PCP. She was in agreement this plan. She was given a dose of IM Toradol prior to discharge. She can use [id number] analgesia medications as needed. Patient was in agreement this plan. I will provide the patient with a prescription for Medrol Dosepak. I instructed the patient to follow up with their PCP in the next 1-3 days.. I explained that the patient should return to the emergency department if they experience any worsening symptoms. Strict return precautions were discussed with the patient. The patient expressed understanding of these instructions. I answered all questions that the patient had. The patient was discharged home in good condition with their prescriptions and follow up information. Undiagnosed new problem with uncertain prognosis? @ -No Drug Therapy requiring intensive monitoring for toxicity (Heparin, Nitro, Insulin, Cardizem)? @ -No Were any procedures done? @ -No Diagnosis/symptom? @ -Sinusitis Acute, or Chronic, or Acute on Chronic? @ -Acute on chronic Uncomplicated (without systemic symptoms) or Complicated (systemic symptoms)? @ -Uncomplicated Side effects of treatment? @ -No Exacerbation, Progression, or Severe Exacerbation? @ -No Poses a threat to life or bodily function? How? (Chest pain, [place], [place], pneumonia, PE, COPD, DKA, ARF, appy, cholecystitis, CVA, Diverticulitis, Homicidal, Suicidal, threat to staff... and all critical care pts) @ -Unlikely at this time - Lab Data Lab Results 07/01/24 Range/Units 22:34 Influenza Type A (PCR) Not Detected (Not Detectd) Influenza Type B (PCR) Not Detected (Not Detectd) RSV (PCR) Not Detected (Not Detectd) SARS-CoV-2 (PCR) Not Detected (Not Detectd) Disposition Clinical Impression: Sinusitis Disposition: HOME SELF-CARE Condition: Good Prescriptions: methylPREDNISolone [Medrol Dose Pack] 0 mg PO DIRECTED #1 packet Azithromycin [Zithromax] 250 mg PO DAILY 5 Days #6 tab Is patient prescribed a controlled substance at d/c from ED?: No Referrals: None,Stated [Primary Care Provider] - 1-2 days Time of Disposition: 23:25
[2024-07-01] MEDS: KETOROLAC 15 MG/ML 1 ML VIAL IM STA (23:52)
[2024-07-01 23:57] VITALS: BP 133/78; PULSE 16; TEMP 98.3
== END 2024-07-01 23:57 | disposition home or self-care (01) ==
LOC: EC 21:52
DX: J32.9 Chronic sinusitis, unspecified (principal); F17.200 Nicotine dependence, unspecified, uncomplicated; Z88.5 Allergy status to narcotic agent
CPT/HCPCS: 87636; 71046; 99284; 96372; J1885; J2919

== ENCOUNTER → 2024-08-20 | Outpatient (CLI) | payer OTHER ==
--- NOTE | 2024-08-20 09:56 | XR ---
EXAMINATION TYPE: XR chest 2V DATE OF EXAM: 08/20/2024 9:51 AM COMPARISON: 07/01/2024 CLINICAL INDICATION: Female, 59 years old with history of R05.3 COUGH, TECHNIQUE: XR chest 2V view(s) obtained. FINDINGS: The heart size is normal. The pulmonary vasculature is normal. The lungs are clear. IMPRESSION: 1. No acute pulmonary process. [facility], , 08/20/2024 9:53 AM
== END | disposition home or self-care (01) ==
LOC: RADXRMAIN 09:34
DX: R05.3 Chronic cough (principal)
CPT/HCPCS: 71046